=== PATIENT | female | born 1945 | race Caucasian/White ===

== ENCOUNTER 2016-11-29 09:31 | Outpatient (CLI) | payer MEDICARE ==
[2016-11-29 16:41] LABS: #Basophils 0.1 thou/uL (0.0-0.2); #Eosinphils 0.2 thou/uL (0.0-0.7); #Lymphocytes 1.7 thou/uL (1.20-3.40); #Monocytes 0.5 thou/uL (0.11-0.59); #Neutrophils 5.1 thou/uL (1.40-6.50); %Basophils 1.1 % (0.0-1.0); %Eosinophils 2.8 % (0.0-10.0); %Monocytes 6.6 % (0.0-10.0); Hematocrit 40.6 % (36.0-47.0); Mean Platelet Volume 8.2 fL (7.4-10.4); Red Blood Cell (RBC) Count 4.44 mill/uL (4.20-5.40); White Blood Cell (WBC) Count 7.6 thou/uL (4.8-10.8)
[2016-11-29 16:58] LABS: Hemoglobin A1c 12.3 % (4.0-6.0)
[2016-11-29 18:19] LABS: ALT (SGPT) 12 U/L (0-55); AST (SGOT) 14 U/L (5-34); Alkaline Phosphatase 81 U/L (40-150); Anion Gap 19 mmol/L (10-20); BUN (Urea Nitrogen) 24 mg/dL (9.8-20.1); Bilirubin, Total 0.3 mg/dL (0.2-1.2); Calc. Creatinine Clearance 0 mL/min (70-130); Calcium 9.4 mg/dL (7.8-10.44); Carbon Dioxide 23 mmol/L (23-31); Chloride 103 mmol/L (98-107); Estimated GFR-MDRD 38; Globulin 2.2 g/dL (2.4-3.5); Microalbumin Urine 7.3 mg/dL (0.5-50.0); Protein, Total 6.3 g/dL (5.8-8.1)
== END 2016-11-29 09:32 | disposition home or self-care (01) ==
LOC: LABLEX 09:31
PROVIDERS: ATTEND Family Medicine
DX: E03.9 Hypothyroidism, unspecified (principal); E11.9 Type 2 diabetes mellitus without complications; I25.10 Atherosclerotic heart disease of native coronary artery without angina pectoris; D64.9 Anemia, unspecified
CPT/HCPCS: 80053; 82043; 83036; 84443; 85025

== ENCOUNTER 2016-11-29 10:13 | Outpatient (CLI) | payer MEDICARE | END 2016-11-29 10:14 | LOC: LABLEX 10:13 | PROVIDERS: ATTEND Family Medicine | DX: R10.9 Unspecified abdominal pain (principal) | CPT/HCPCS: 87086 ==

== ENCOUNTER 2017-05-01 09:56 | Outpatient (CLI) | payer MEDICARE ==
[2017-05-01 16:55] LABS: #Basophils 0.1 thou/uL (0.0-0.2); #Eosinphils 0.2 thou/uL (0.0-0.7); #Lymphocytes 1.2 thou/uL (1.20-3.40); #Monocytes 0.5 thou/uL (0.11-0.59); #Neutrophils 3.1 thou/uL (1.40-6.50); %Basophils 1.5 % (0.0-1.0); %Eosinophils 4.5 % (0.0-10.0); %Lymphocytes 24.1 % (21.0-51.0); %Neutrophils 60.9 % (42.0-75.0); Hemoglobin 11.8 g/dL (12.0-16.0); Mean Corpuscular HGB CONC 32.8 g/dL (32.0-36.0); Mean Corpuscular Hemoglobin 30.7 pg (27.0-31.0); Mean Corpuscular Volume 93.6 fl (81.0-99.0); Mean Platelet Volume 8.7 fL (7.4-10.4); Platelet Count 168 thou/uL (130-400); RBC Distribution Width 11.8 % (11.5-14.5); Red Blood Cell (RBC) Count 3.86 mill/uL (4.20-5.40); White Blood Cell (WBC) Count 5.1 thou/uL (4.8-10.8)
[2017-05-01 16:59] LABS: ALT (SGPT) 13 U/L (8-55); AST (SGOT) 17 U/L (5-34); Albumin 3.9 g/dL (3.4-4.8); Alkaline Phosphatase 77 U/L (40-150); Anion Gap 15 mmol/L (10-20); BUN (Urea Nitrogen) 28 mg/dL (9.8-20.1); Bilirubin, Total 0.5 mg/dL (0.2-1.2); Calc. Creatinine Clearance 0 mL/min (70-130); Calcium 9.2 mg/dL (7.8-10.44); Carbon Dioxide 25 mmol/L (23-31); Cardiac Risk 3.3 (Less than 4.5); Chloride 105 mmol/L (98-107); Cholesterol 167 mg/dl (< 200 Desired); Estimated GFR-MDRD 47; Globulin 2.4 g/dL (2.4-3.5); Glucose 242 mg/dL (83-110); HDL Cholesterol 50 mg/dL (>60 Neg Risk); LDL Cholesterol, Calculated 97 mg/dL; Potassium 5.1 mmol/L (3.5-5.1); Protein, Total 6.3 g/dL (6.0-8.3); Sodium 140 mmol/L (136-145); Triglycerides 98 mg/dL (Less than 150)
[2017-05-01 17:17] LABS: Hemoglobin A1c 8.4 % (4.0-6.0)
== END 2017-05-01 09:57 | disposition home or self-care (01) ==
LOC: LABLEX 09:56
PROVIDERS: ATTEND Family Medicine
DX: E11.65 Type 2 diabetes mellitus with hyperglycemia (principal); I25.10 Atherosclerotic heart disease of native coronary artery without angina pectoris; E78.5 Hyperlipidemia, unspecified; E03.9 Hypothyroidism, unspecified; D64.9 Anemia, unspecified; N28.9 Disorder of kidney and ureter, unspecified; R30.0 Dysuria
CPT/HCPCS: 80053; 80061; 83036; 84443; 85025; 87086

== ENCOUNTER 2018-10-19 16:18 | Emergency (ER) | payer MEDICARE ==
[2018-10-19] MEDS ORDERED: HYDROcodone/Acetaminophen 5/325 mg Tablet ONE (16:47)
[2018-10-19] MEDS ORDERED: Ibuprofen 800 MG TAB ONE (16:47)
[2018-10-19] MEDS ORDERED: Bacitracin Zinc 1 Packet ONE (17:38)
--- NOTE | 2018-10-19 20:28 | RAD ---
LEFT ANKLE THREE VIEWS: 10/19/18 HISTORY: Ankle injury. There are vascular calcifications noted. Calcaneal spurs are noted. There is no fracture or dislocati on. IMPRESSION: No evidence of acute injury. POS: MELIS[facility]
--- NOTE | 2018-10-19 20:29 | RAD ---
LEFT FOOT THREE VIEWS: 10/19/18 HISTORY: Injury. There are arthritic changes of the first metatarsophalangeal joint. There are calcaneal spurs and vas cular calcifications seen. No acute injury. IMPRESSION: No acute fracture. POS: MELISSA
== END 2018-10-19 17:58 | disposition home or self-care (01) ==
LOC: BURERS 16:18
DX: S90.32XA Contusion of left foot, initial encounter (principal); S90.02XA Contusion of left ankle, initial encounter; E11.9 Type 2 diabetes mellitus without complications; E78.00 Pure hypercholesterolemia, unspecified; I25.10 Atherosclerotic heart disease of native coronary artery without angina pectoris; Z79.899 Other long term (current) drug therapy; V03.90XA Pedestrian on foot injured in collision with car, pick-up truck or van, unspecified whether traffic or nontraffic accident, initial encounter